=== PATIENT | female | born 1985 | race African-American/Black ===

== ENCOUNTER 2016-07-26 10:45 | Observation (INO) | payer MEDICAID ==
[~2016-07-26 10:45] MED LIST: PRENCAP61 PO
== END 2016-07-26 12:25 | disposition home or self-care (01) | DRG 566 ==
LOC: LDRP 10:45
PROVIDERS: ADMIT Specialist; ATTEND Specialist
DX: O62.9 Abnormality of forces of labor, unspecified (principal); O42.92 Full-term premature rupture of membranes, unspecified as to length of time between rupture and onset of labor; Z3A.38 38 weeks gestation of pregnancy
CPT/HCPCS: 59025; 76818; 81002; G0378

== ENCOUNTER 2016-07-28 22:41 | Inpatient (IN) | payer MEDICAID ==
[~2016-07-28] VITALS: Ht 157.5 cm; Wt 79.4 kg
[2016-07-28] MEDS ORDERED: LACT. RINGERS/OXYTOCIN 20UNITS 1,000 ML IV SCH (22:56)
[2016-07-28] MEDS ORDERED: LACTATED RINGER'S 1,000 ML IV SCH (22:56)
[2016-07-28] MEDS ORDERED: METHYLERGONOVINE MALEATE 0.2 MG/ML AMP IM PRN (23:00)
[2016-07-28] MEDS ORDERED: PHISODERM TOP SOLN 240ML BTL TOP PRN (23:00)
[2016-07-28] MEDS ORDERED: WITCH HAZEL-GLYCERIN PAD TOP PRN (23:00)
[2016-07-28] MEDS ORDERED: DERMOPLAST 60ML BOTTLE TOP PRN (23:00)
[2016-07-28] MEDS ORDERED: NALBUPHINE HCL 10 MG/1ml INJECTION IV PRN (23:00)
[2016-07-28] MEDS ORDERED: LIDOCAINE 2%HCL (LOCAL ANESTH.) INJ 20ML MDV IJ PRN (23:00)
[2016-07-28] MEDS ORDERED: METHYLERGONOVINE MALEATE 0.2 MG/ML AMP IM ONE (23:05)
[2016-07-28] MEDS ORDERED: LIDOCAINE 2%HCL (LOCAL ANESTH.) INJ 20ML MDV ONE (23:05)
[2016-07-28] MEDS ORDERED: WITCH HAZEL-GLYCERIN PAD TOP ONE (23:05)
[2016-07-28] MEDS ORDERED: LACT. RINGERS/OXYTOCIN 20UNITS 1,000 ML IV ONE (23:05)
[2016-07-28] MEDS ORDERED: PHISODERM TOP SOLN 240ML BTL TOP ONE (23:05)
[2016-07-28] MEDS ORDERED: DERMOPLAST 60ML BOTTLE TOP ONE (23:05)
[2016-07-28] MEDS ORDERED: OXYTOCIN 10UNIT/ML 1ML VIAL ONE (23:17)
[2016-07-28 23:27] LABS: Basophils # (auto) 0.1 uL; Basophils % (auto) 1.1 % (0.0-2.0); DEFINITIVE VIEW TRANSMISSION; Eosinophils # (auto) 0.1 uL; Eosinophils % (auto) 1.7 % (0.0-7.0); Hemoglobin 10.9 g/dL (12.2-16.2); Lymphocytes # (auto) 2.4 uL; Lymphocytes % (auto) 27.9 % (10.0-50.0); Mean Corpuscular Hemoglobin 25.7 pg (28.0-32.0); Mean Corpuscular Volume 80.4 fL (80.0-100.0); Mean Platelet Volume 7.6 fL (7.4-10.4); Monocytes # (auto) 0.5 uL; Monocytes % (auto) 6.4 % (0.0-12.0); Neutrophils # (auto) 5.3 uL; Neutrophils % (auto) 62.9 % (37.0-80.0); Platelet Count (auto) 274 10^3/uL (140-450); White Blood Cell 8.4 10^3/uL (4.4-10.8)
[2016-07-28 23:53] LABS: Calcium 8.7 mg/dL (8.5-10.1); INR 0.9 (0.9-1.15); Partial Thromboplastin Time 28.1 sec (22.64-33.71); Potassium 3.6 mmol/L (3.5-5.1); Prothrombin Time 9.7 sec (9.37-12.3)
[2016-07-28 23:57] LABS: Bilirubin, Total 0.3 mg/dL (0.2-1.0)
[2016-07-29] VITALS (8 sets, daily range): BP systolic 87–118; BP diastolic 53–80
[2016-07-29 00:13] LABS: Urine Bilirubin Negative (Negative); Urine Color Yellow (Yellow); Urine Glucose Normal (Normal); Urine Mucus FEW (None Seen); Urine Nitrite Negative (Negative); Urine RBC 4 /hpf (0 - 4); Urine Squamous Epithelial Cell FEW /hpf (<5); Urine Urobilinogen Normal (Negative); Urine pH 6.5 (5.0-8.0)
[2016-07-29 00:17] LABS: Urine Blood 2+ /uL (Negative); Urine Ketone 3+ (Negative)
[2016-07-29] MEDS ORDERED: LACT. RINGERS/OXYTOCIN 20UNITS 500 ML IV ONE (00:47)
[2016-07-29] MEDS: IBUPROFEN 600 MG TAB PO PRN ×2 (01:43→16:23)
[2016-07-29] MEDS ORDERED: LACT. RINGERS/OXYTOCIN 20UNITS 1,000 ML IV SCH (01:47)
[2016-07-29] MEDS ORDERED: FERR-7 PO (06:59)
[2016-07-29] MEDS: ACETAMINOPHEN 325 MG TAB PO PRN ×2 (07:08→22:00)
[2016-07-30 02:00] VITALS: BP 108/60
[2016-07-30 06:17] VITALS: BP 108/61
[2016-07-30] MEDS ORDERED: TETANUS-DIPTH-ACEL PERTUSSIS 0.5ML SYRG IM ONE (10:15)
[2016-07-30] MEDS: IBUPROFEN 600 MG TAB PO PRN (10:33)
[2016-07-30 10:37] VITALS: BP 106/71
== END 2016-07-30 12:15 | disposition home or self-care (01) | DRG 560 ==
LOC: LDRP 22:41
PROVIDERS: ADMIT Obstetrics & Gynecology; ATTEND Obstetrics & Gynecology
PROC: 10E0XZZ Delivery of Products of Conception, External Approach (ICD-10-PCS; principal; 2016-07-29)
PROC: 0W8NXZZ Division of Female Perineum, External Approach (ICD-10-PCS; 2016-07-29)
DX: O76 Abnormality in fetal heart rate and rhythm complicating labor and delivery (principal); O69.81X0 Labor and delivery complicated by cord around neck, without compression, not applicable or unspecified; Z3A.38 38 weeks gestation of pregnancy; Z37.0 Single live birth
CPT/HCPCS: 36415; 51702; 59025; 59409; 80053; 80307; 81001; 81002; 85025; 85610; 85730; 86850; 86900; 86901; 90715; 96361; 96366; 96372; J2590